=== PATIENT | male | born 1975 | race Caucasian/White ===

== ENCOUNTER 2016-11-05 17:05 | Emergency (ER) | payer OTHER, BC ==
[~2016-11-05] VITALS: Ht 193 cm; Wt 97.7 kg
[2016-11-05 17:11] VITALS: TEMP 97.6
[2016-11-05 18:53] VITALS: BP 148/104; PULSE 76
[2016-11-05] MEDS ORDERED: CEPHALEXIN500 M1 PO (19:00)
[2016-11-05] MEDS ORDERED: NORCO 325 MG-51 TAB PO (19:00)
== END 2016-11-05 19:08 | disposition home or self-care (01) ==
LOC: COL.ER 17:05
DX: S12.600A Unspecified displaced fracture of seventh cervical vertebra, initial encounter for closed fracture (principal); S01.01XA Laceration without foreign body of scalp, initial encounter; W22.8XXA Striking against or struck by other objects, initial encounter; Y92.89 Other specified places as the place of occurrence of the external cause; Z23 Encounter for immunization; R03.0 Elevated blood-pressure reading, without diagnosis of hypertension

== ENCOUNTER 2016-12-04 15:09 | Outpatient (RCR) | payer OTHER ==
[~2016-12-04 15:09] MED LIST: CEPHALEXIN500 M1 PO; NORCO 325 MG-51 TAB PO
== END 2016-12-26 13:24 ==
LOC: WSOH 15:09
DX: S01.01XD Laceration without foreign body of scalp, subsequent encounter (principal); S12.690D Other displaced fracture of seventh cervical vertebra, subsequent encounter for fracture with routine healing; M25.562 Pain in left knee

== ENCOUNTER → 2017-07-27 | Outpatient (REF) | LOC: WSOH 09:51 | DX: Z02.89 Encounter for other administrative examinations (principal) ==

== ENCOUNTER 2019-08-25 13:00 | Outpatient (RCR) | payer BC | END 2019-09-05 | LOC: WSC | DX: S76.112A Strain of left quadriceps muscle, fascia and tendon, initial encounter (principal); Z98.890 Other specified postprocedural states ==

== ENCOUNTER 2019-10-17 12:45 | Outpatient (RCR) | payer BC | END 2019-11-04 13:56 | disposition home or self-care (01) | LOC: WSC 12:45 | DX: Z98.890 Other specified postprocedural states (principal) ==

== ENCOUNTER 2020-01-11 14:30 | Outpatient (RCR) | payer BC | END 2020-03-21 | disposition still patient (30) | LOC: WSC | DX: M25.562 Pain in left knee (principal); R53.1 Weakness; Z98.890 Other specified postprocedural states ==

== ENCOUNTER 2022-04-07 14:01 | Emergency (ER) | payer OTHER ==
[~2022-04-07] VITALS: Ht 193 cm; Wt 97.7 kg
[2022-04-07 14:21] VITALS: TEMP 97.4
[2022-04-07 16:29] VITALS: BP 115/72; PULSE 105
--- NOTE | 2022-04-07 16:31 | NUR ---
car worker consulted after patient expressed desire to go to a detox facility. GLENN met with patient and provided the alcohol and drug dexox resource guide to the patient. GLENN educated the patient the he would have to call the facilities. Patient contacted [facility] in [place] who stated that they do not have any beds. Patient then call [facility] who stated that they too did not have any beds. Patient asks for help on calling [facility] in [place] stating " a lot of people i know have gone there". Glenn assisted patient in contacting the facility. Patient completed his intake with agency staff. GLENN assisted agency staff ([facility]) on getting the patients insurance information. [facility] called back stating the patient's insurance is accepted and reviewed out of pocket expenses with the patient. Patient agreeable to pay. GLENN contacted the patient's mother Liv who agrees to drive the patient to facility and will be here in 30 min. to pick the patient up. Patient's RN updated and GLENN faxed ER documentation to [facility] at agency per request.
== END 2022-04-07 17:01 | disposition home or self-care (01) ==
LOC: COL.ER 14:01
DX: F10.229 Alcohol dependence with intoxication, unspecified (principal); Z28.310 Unvaccinated for COVID-19